=== PATIENT | female | born 1970 | race Caucasian/White ===

== ENCOUNTER 2018-03-20 15:55 | Emergency (ER) | payer BC ==
--- NOTE | 2018-03-20 17:35 | EDM.PDOC ---
ED HPI GENERAL MEDICAL PROBLEM - General Chief Complaint: Chest Pain Stated Complaint: CHEST PAIN Time Seen by Provider: 03/20/18 16:54 Source of Information: Reports: Patient History Limitations: Reports: No Limitations - History of Present Illness INITIAL COMMENTS - FREE TEXT/NARRATIVE: 47-year-old female with a past medical history of anxiety presenting with a chief complaint of some chest tightness. Patient states her symptoms have been intermittent and ongoing for a few months at least. She had an episode today which alarmed her in particular Associated with nausea and some very mild shortness of breath. She can't describe any palliating or provoking factors. It was resolved after a few minutes with no intervention. Her symptoms are nonexertional in nature. She has no risk factors for DVT or PE. epigastric Pain Score (Numeric/FACES): 4 - Related Data Allergies Allergy/AdvReac Type Severity Reaction Status Date / Time No Known Allergies Allergy Verified 03/20/18 16:13 Home Meds: Home Meds . [No Known Home Meds] 03/20/18 [History] Past Medical History - Past Health History Medical/Surgical History: Denies Medical/Surgical History Psychiatric History: Reports: Anxiety Social & Family History - Family History Family Medical History: Noncontributory - Tobacco Use Smoking Status *Q: Former Smoker Used Tobacco, but Quit: No - Caffeine Use Caffeine Use: Reports: Coffee - Recreational Drug Use Recreational Drug Use: No ED ROS GENERAL - Review of Systems Review Of Systems: See Below Constitutional: Reports: No Symptoms HEENT: Reports: No Symptoms Respiratory: Reports: Shortness of Breath Cardiovascular: Reports: Other (Chest pressure) GI/Abdominal: Reports: Nausea : Reports: No Symptoms Musculoskeletal: Reports: No Symptoms Skin: Reports: No Symptoms Neurological: Reports: No Symptoms Psychiatric: Reports: Anxiety Hematologic/Lymphatic: Reports: No Symptoms ED EXAM, GENERAL - Physical Exam Exam: See Below Exam Limited By: No Limitations General Appearance: Alert, No Apparent Distress Throat/Mouth: Normal Inspection Head: Atraumatic, Normocephalic Respiratory/Chest: No Respiratory Distress Cardiovascular: Normal Peripheral Pulses, Regular Rate, Rhythm, No Edema, No Murmur, No Rub GI/Abdominal: Normal Bowel Sounds, Soft, Non-Tender Back Exam: Normal Inspection Extremities: Normal Inspection, Normal Range of Motion Neurological: Alert, Oriented, CN II-XII Intact, No Motor/Sensory Deficits Psychiatric: Normal Affect, Normal Mood Skin Exam: Warm, Dry, Intact EKG INTERPRETATION EKG Date: 03/20/18 Time: 16:03 Rhythm: NSR Rate (Beats/Min): 74 [place]: Normal P-Wave: Present QRS: Normal ST-T: Normal QT: Normal Comparison: NA - No Prior EKG Course - Vital Signs Last Recorded V/S: Last Vital Signs Temp 36.8 C 03/20/18 16:00 Pulse 73 03/20/18 16:00 Resp 18 03/20/18 16:00 BP 157/92 H 03/20/18 16:00 Pulse Ox 100 03/20/18 16:00 - Orders/Labs/Meds Labs: Laboratory Tests 03/20/18 03/20/18 Range/Units 16:40 16:40 WBC 9.81 (3.98-10.04) K/mm3 RBC 4.72 (3.98-5.22) M/mm3 Hgb 14.5 (11.2-15.7) gm/L Hct 43.5 (34.1-44.9) % MCV 92.2 (79.4-94.8) fl MCH 30.7 (25.6-32.2) pg MCHC 33.3 (32.2-35.5) g/dl RDW Std Deviation 46.2 (36.4-46.3) fL Plt Count 197 (182-369) K/mm3 MPV 10.8 (9.4-12.3) fl Neut % (Auto) 58.2 (34.0-71.1) % Lymph % (Auto) 31.0 (19.3-51.7) % [place] % (Auto) 8.3 (4.7-12.5) % Eos % (Auto) 1.9 (0.7-5.8) Baso % (Auto) 0.4 (0.1-1.2) % Neut # (Auto) 5.71 (1.56-6.13) K/mm3 Lymph # (Auto) 3.04 (1.18-3.74) K/mm3 [place] # (Auto) 0.81 H (0.24-0.36) K/mm3 Eos # (Auto) 0.19 (0.04-0.36) K/mm3 Baso # (Auto) 0.04 (0.01-0.08) K/mm3 Sodium 140 (136-145) mEq/L Potassium 4.3 (3.5-5.1) mEq/L Chloride 105 (98-107) mEq/L Carbon Dioxide 26 (21-32) mEq/L Anion Gap 13.3 (5-15) BUN 14 (7-18) mg/dL Creatinine 1.0 (0.55-1.02) mg/dL Est Cr Clr Drug Dosing 62.58 mL/min Estimated GFR (MDRD) 59 (>60) mL/min BUN/Creatinine Ratio 14.0 (14-18) Glucose 94 (74-106) mg/dL Calcium 9.0 (8.5-10.1) mg/dL Total Bilirubin 0.6 (0.2-1.0) mg/dL AST 17 (15-37) U/L ALT 13 L (14-59) U/L Alkaline Phosphatase 42 L (46-116) U/L Troponin I < 0.017 (0.00-0.056) ng/mL C-Reactive Protein < 0.2 (<1.0) mg/dL Total Protein 7.5 (6.4-8.2) g/dl Albumin 4.0 (3.4-5.0) g/dl Globulin 3.5 gm/dL Albumin/Globulin Ratio 1.1 (1-2) - Re-Assessments/Exams Free Text/Narrative Re-Assessment/Exam: 03/21/18 22:24 Differential diagnosis: Costochondritis, pleurisy, anxiety, musculoskeletal chest pain, highly unlikely ACS or PE 47-year-old female presenting with chief complaint of intermittent chest tightness and shortness of breath. Upon initial evaluation patient's vital signs and normal physical exam. EKG is not concerning for ischemia Labs are normal. Upon reevaluation patient continues to be asymptomatic while in the emergency department at this time until patient is a 3 discharged home. No apparent evidence for cardiac or pulmonary etiology. She has follow-up scheduled with her PCP tomorrow morning and agrees to keep that appointment. Patient is given return precautions. No questions. Departure - Departure Time of Disposition: 18:33 Disposition: Home, Self-Care 01 Condition: Good Clinical Impression: Chest pain Qualifiers: Chest pain type: unspecified Qualified Code(s): R07.9 - Chest pain, unspecified Instructions: Nonspecific Chest Pain, Nonspecific Chest Pain, [id number] Referrals: Camille Hoskins SECURITY ADMINISTRATOR [Ordering Only Provider] - Forms: ED Department Discharge Additional Instructions: You were evaluated in the emergency department today for chest discomfort and shortness of breath. At this time all the diagnostic tests are not suggestive of a serious or life-threatening cause for your symptoms. It is safe to go home at this time. Please follow-up with your new primary care provider tomorrow as you've already previously scheduled. If at any time you have new or worsening symptoms which are concerning, please re-present to the emergency department for re-evaluation.
--- NOTE | 2018-03-22 08:46 | CR ---
Chest: Two views of the chest were obtained. Comparison: No prior chest x-ray. Heart size and mediastinum are normal. Lungs are clear. Mild scoliosis is noted within the spine. Bony structures are otherwise unremarkable. Impression: 1. Nothing acute is seen on two-view chest x-ray. Diagnostic code #2
== END 2018-03-20 18:52 | disposition home or self-care (01) ==
LOC: JD.ED 15:55
DX: R07.9 Chest pain, unspecified (principal); Z87.891 Personal history of nicotine dependence
CPT/HCPCS: 36415; 71046; 71046-26; 80053; 84484; 85025; 86140; 93005; 99285-25

== ENCOUNTER 2020-05-12 23:42 | Emergency (ER) | payer BC ==
--- NOTE | 2020-05-13 00:12 | EDM.PDOC ---
ED HPI GENERAL MEDICAL PROBLEM - General Chief Complaint: General Stated Complaint: VISION AFFECTED/HIGH BP/DIZZY/WEAKNESS Time Seen by Provider: 05/12/20 23:56 Source of Information: Reports: Patient History Limitations: Reports: No Limitations - History of Present Illness INITIAL COMMENTS - FREE TEXT/NARRATIVE: Ms. Doyle is a very pleasant 49-year-old woman who now presents to the ED after developing nausea around 13:00 this afternoon. She checked her blood pressure, finding it to be around 160/90. Around the same time, she developed swirling vision, generalized weakness, heavy feeling arms with tingling, and a headache. The patient states that she has had similar symptoms in the past, but not all at the same time. The patient states that she took 2 tablets of ibuprofen around 19:00, which provided her some relief of her symptoms. Here in the ED, the patient's initial BP is found to be elevated at 170/95, however, within a few minutes it was down to 142/93, without treatment. She is otherwise hemodynamically stable, afebrile, saturating 97% on room air. The patient reports over 6 months of watery diarrhea, otherwise, the patient denies having a recent fever, chills, sore throat, ear pain, nasal or sinus congestion, cough, dyspnea, chest pain, palpitations, nausea, vomiting, constipation, diarrhea, abdominal pain, urinary symptoms, recent weight gain or weight loss, recent bloody bowel movements or black bowel movements, recent joint aches, headaches, or rashes. The patient's PCP is APOORVA Bailey. Her R Programmer is Dr. Janet Crabtree. - Related Data Allergies Allergy/AdvReac Type Severity Reaction Status Date / Time No Known Allergies Allergy Verified 03/20/18 16:13 Home Meds: Home Meds . [No Known Home Meds] 03/20/18 [History] Past Medical History HEENT History: Reports: Impaired Vision (wears glasses) Psychiatric History: Reports: Anxiety (untreated) Endocrine/Metabolic History: Reports: Obesity/BMI 30+ - Past Surgical History HEENT Surgical History: Reports: Adenoidectomy, Oral Surgery (dental extractions), Tonsillectomy Female Surgical History: Reports: D&C (x 1) Social & Family History - Family History Family Medical History: Noncontributory - Tobacco Use Tobacco Use Status *Q: Former Tobacco User Years of Tobacco use: 7 Packs/Tins Daily: 0.2 Month/Year Tobacco Last Used: Quit 2008 - Caffeine Use Caffeine Use: Reports: Coffee - Alcohol Use Alcohol Use History: Yes Alcohol Use Frequency: Socially - Recreational Drug Use Recreational Drug Use: No - Living Situation & Occupation Living situation: Reports: , with Family (Parents) 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 ED EXAM, GENERAL - Physical Exam Exam: See Below Exam Limited By: No Limitations General Appearance: Alert, WD/WN, No Apparent Distress Eye Exam: Bilateral Eye: EOMI, Normal Inspection Ears: Normal External Exam, Hearing Grossly Normal Nose: Normal Inspection Throat/Mouth: Normal Inspection, Normal Lips, Normal Voice, No Airway Compromise Head: Atraumatic, Normocephalic Neck: Normal Inspection, Full Range of Motion Respiratory/Chest: No Respiratory Distress, Lungs Clear, Normal Breath Sounds, No Accessory Muscle Use Cardiovascular: Normal Peripheral Pulses, Regular Rate, Rhythm, No Edema, No Gallop, No JVD, No Murmur, No Rub Peripheral Pulses: 3+: Radial (L), Radial (R) GI/Abdominal: Normal Bowel Sounds, Soft, Non-Tender, No Organomegaly, No Dist ention, No Abnormal Bruit, No Mass Back Exam: Normal Inspection, Full Range of Motion, NT Extremities: Normal Inspection, Normal Range of Motion, Normal Capillary Refill Neurological: Alert, Oriented, CN II-XII Intact, Normal Cognition, No Motor/Sensory Deficits Psychiatric: Normal Affect Skin Exam: Warm, Dry, Intact, Normal Color, No Rash #1 Interpretation EKG Date: 05/13/20 Time: 00:25 Rhythm: NSR Rate (Beats/Min): 71 [place]: Normal P-Wave: Present QRS: Normal ST-T: Normal QT: Normal Comparison: No Change (03/20/2018) Course - Vital Signs Last Recorded V/S: Last Vital Signs Temp 36.4 C 05/12/20 23:54 Pulse 81 05/12/20 23:54 Resp 16 05/12/20 23:54 BP 170/95 H 05/12/20 23:54 Pulse Ox 97 05/12/20 23:54 - Orders/Labs/Meds Orders: Active Orders 24 hr Category Date Time Status EKG Documentation Completion [RC] STAT Care 05/13/20 00:09 Active Chest 2V [CR] Stat Exams 05/13/20 00:08 Taken Labs: Laboratory Tests 05/13/20 05/13/20 05/13/20 Range/Units 00:33 00:33 00:33 WBC 7.44 (3.98-10.04) K/mm3 RBC 4.20 (3.98-5.22) M/mm3 Hgb 12.9 D (11.2-15.7) gm/dl Hct 39.7 (34.1-44.9) % MCV 94.5 (79.4-94.8) fl MCH 30.7 (25.6-32.2) pg MCHC 32.5 (32.2-35.5) g/dl RDW Std Deviation 46.1 (36.4-46.3) fL Plt Count 200 (182-369) K/mm3 MPV 11.3 (9.4-12.3) fl Neutrophils % (Manual) 47 (40-60) % Band Neutrophils % 0 (0-10) % Lymphocytes % (Manual) 44 H (20-40) % Atypical Lymphs % 0 % Monocytes % (Manual) 4 (2-10) % Eosinophils % (Manual) 3 (0.7-5.8) % Basophils % (Manual) 2 H (0.1-1.2) Platelet Estimate Adequate Plt Morphology Comment Normal RBC Morph Comment Normal D-Dimer, Quantitative 0.41 (0.19-0.50) mg/L Sodium 142 (136-145) mEq/L Potassium 3.6 (3.5-5.1) mEq/L Chloride 106 (98-107) mEq/L Carbon Dioxide 23 (21-32) mEq/L Anion Gap 16.6 H (5-15) BUN 13 (7-18) mg/dL Creatinine 1.2 H (0.55-1.02) mg/dL Est Cr Clr Drug Dosing 51.03 mL/min Estimated GFR (MDRD) 48 (>60) mL/min BUN/Creatinine Ratio 10.8 L (14-18) Glucose 102 (74-106) mg/dL Calcium 8.4 L (8.5-10.1) mg/dL Magnesium 1.7 L (1.8-2.4) mg/dl Total Bilirubin 0.3 (0.2-1.0) mg/dL AST 19 (15-37) U/L ALT 31 (14-59) U/L Alkaline Phosphatase 24 L (46-116) U/L Troponin I < 0.017 (0.00-0.056) ng/mL C-Reactive Protein 0.2 (<1.0) mg/dL Total Protein 6.7 (6.4-8.2) g/dl Albumin 3.2 L (3.4-5.0) g/dl Globulin 3.5 gm/dL Albumin/Globulin Ratio 0.9 L (1-2) - Re-Assessments/Exams Free Text/Narrative Re-Assessment/Exam: 05/13/20 00:10 As above, the patient felt nauseated earlier this afternoon, checked her blood pressure, finding it to be modestly elevated at 160/90, but around the same time developed swirling vision, generalized weakness, heavy feeling arms with tingling, and a headache. Here in the ED, the patient's initial BP was again found to be modestly elevated at 170/95, however, within minutes, it was down to 142/93. Her physical exam is entirely benign. I have ordered a work-up that includes blood work, a chest x-ray, and an ECG. 05/13/20 01:05 2-view chest radiograph is read by John as "No acute findings." 05/13/20 01:54 The patient's CBC is unremarkable. Her CMP is remarkable for an anion gap slightly elevated at 16.6, but with a bicarbonate normal at 23. Her Cr is slightly elevated at 1.2, with a BUN normal at 13, and the remainder of her CMP being unremarkable. Her magnesium level is slightly depressed at 1.7. Her CRP is within normal limits at 0.2. Her troponin is undetectably low. Her D-dimer is within normal limits at 0.41. 05/13/20 01:58 Test results discussed with the patient. As above, today's work-up is unremarkable. It is unclear what the cause of the patient's symptoms were. She may have had a migraine, except that her symptoms have resolved without any treatment, and she has no history of migraines. I believe the patient can safely be discharged home. If her symptoms persist or recur, I would like her to follow-up with her PCP. Departure - Departure Time of Disposition: 01:58 Disposition: Home, Self-Care 01 Condition: Good Clinical Impression: Elevated blood pressure reading, Change in vision, Generalized weakness, Headache - Discharge Information *PRESCRIPTION DRUG MONITORING PROGRAM REVIEWED*: Not Applicable *COPY OF PRESCRIPTION DRUG MONITORING REPORT IN PATIENT KWAME: Not Applicable Referrals: Ronda Munoz PA-C [Ordering Only Provider] - Janet Crabtree MD [Physician] - Forms: ED Department Discharge Additional Instructions: You were seen in the emergency room after developing nausea, swelling vision, generalized weakness, heavy feeling arms with tingling, and a headache. Work-up in the ER included blood work, a chest x-ray, and an ECG. Your entire work-up was unremarkable. You have not suffered a heart attack. You do not have a blood clot in your lungs. You do not have pneumonia. You are not anemic. The cause of your symptoms is unclear. It is possible that you suffered a migraine, except that your symptoms essentially resolved without treatment, and you have no history of migraines. If your symptoms persist or recur, we recommend that you follow-up with your PCP, APOORVA Bailey, for further evaluation. If any other problems, please do not hesitate to return to the ER. Sepsis Event Note (ED) - Evaluation Sepsis Screening Result: No Definite Risk - Focused Exam Vital Signs: Vital Signs Temp Pulse Resp BP Pulse Ox 05/12/20 23:54 36.4 C 81 16 170/95 H 97 - My Orders Last 24 Hours: My Active Orders 05/13/20 00:08 Chest 2V [CR] Stat 05/13/20 00:09 EKG Documentation Completion [RC] STAT - Assessment/Plan Last 24 Hours: My Active Orders 05/13/20 00:08 Chest 2V [CR] Stat 05/13/20 00:09 EKG Documentation Completion [RC] STAT
== END 2020-05-13 02:18 | disposition home or self-care (01) ==
LOC: JD.ED 23:42
DX: R03.0 Elevated blood-pressure reading, without diagnosis of hypertension (principal); H53.149 Visual discomfort, unspecified; R53.1 Weakness; R51.9 Headache, unspecified; E66.9 Obesity, unspecified; Z87.891 Personal history of nicotine dependence; Z90.49 Acquired absence of other specified parts of digestive tract; Z68.34 Body mass index [BMI] 34.0-34.9, adult
CPT/HCPCS: 36415; 71046; 80053; 83735; 84484; 85007; 85027; 85379; 86140; 93005; 93010; 99283; 99285-25

== ENCOUNTER 2023-05-25 16:05 | Emergency (ER) | payer BC | END 2023-05-25 17:40 | disposition home or self-care (01) | LOC: JD.ED 16:05 | DX: U07.1 COVID-19 (principal); F41.9 Anxiety disorder, unspecified; R03.0 Elevated blood-pressure reading, without diagnosis of hypertension; E66.9 Obesity, unspecified; Z68.34 Body mass index [BMI] 34.0-34.9, adult | CPT/HCPCS: 99283 ==

== ENCOUNTER 2023-08-24 18:38 | Emergency (ER) | payer BC ==
[2023-08-24] MEDS ORDERED: Dextrose 5%-Lactated Ringers 1,000 ML IV SCH (19:15)
[2023-08-24 19:32] LABS: BASOPHILS ABSOLUTE AUTO 0.1 K/mm3 (0.0-0.2); BASOPHILS PERCENT AUTO 0.9 % (0.0-1.0); EOSINOPHILS ABSOLUTE AUTO 0.2 K/mm3 (0.0-0.4); HEMATOCRIT 39.8 % (37.0-47.0); HEMOGLOBIN 13.6 gm/dl (12.0-16.0); IMMATURE GRAN ABSOLUTE AUTO 0.02 K/mm3 (0.00-0.05); IMMATURE GRAN PERCENT AUTO 0.3 % (0.0-0.4); LYMPHOCYTES PERCENT AUTO 39.4 % (24.0-44.0); MEAN CORPUSCULAR HEMOGLOBIN 33.3 pg (28.0-32.0); MEAN CORPUSCULAR HGB CONC 34.2 g/dl (32.0-36.0); MEAN CORPUSCULAR VOLUME 97.3 fl (83.0-99.0); MEAN PLATELET VOLUME 10.5 fl (9.4-12.3); MONOCYTES ABSOLUTE AUTO 0.7 K/mm3 (0.0-0.8); MONOCYTES PERCENT AUTO 8.8 % (0.0-8.0); NEUTROPHILS ABSOLUTE AUTO 3.7 K/mm3 (1.8-7.7); NEUTROPHILS PERCENT AUTO 48.6 % (41.0-71.0); PLATELET COUNT,PLT 195 K/mm3 (150-400); RED BLOOD CELL COUNT 4.09 M/mm3 (4.10-5.30); WHITE BLOOD CELL COUNT,WBC 7.63 K/mm3 (3.9-11.3)
[2023-08-24] MEDS ORDERED: Ondansetron 4 MG/2 ML SDV IVPUSH ONE (19:42)
[2023-08-24] MEDS ORDERED: LORazepam 2 MG/ML SDV IVPUSH ONE (19:42)
[2023-08-24] MEDS ORDERED: HYDROmorphone 0.5 MG/0.5 ML Syringe IVPUSH ONE (19:43)
[2023-08-24 20:01] LABS: A/G RATIO 1.1 (1-2); ALANINE AMINOTRANSFERASE,ALT 33 U/L (14-59); ALBUMIN 3.5 g/dl (3.4-5.0); ALKALINE PHOSPHATASE 25 U/L (46-116); ANION GAP 16.3 (5-15); ASPARTATE AMNIOTRANSFERASE,AST 25 U/L (15-37); BILIRUBIN TOTAL 0.5 mg/dL (0.2-1.0); BLOOD UREA NITROGEN,BUN 9 mg/dL (7-18); BUN/CREATININE RATIO 11.3 (14-18); C-REACTIVE PROTEIN <0.2 mg/dL (<1.0); CALCIUM 8.7 mg/dL (8.5-10.1); CARBON DIOXIDE,CO2 24 mEq/L (21-32); CHLORIDE,CL 105 mEq/L (98-107); CREATININE 0.8 mg/dL (0.55-1.02); EST CRCL DRUG DOSING (CG) 73.18 mL/min; ESTIMATED GFR 88 mL/min (>60); GLUCOSE RANDOM 96 mg/dL (70-99); MAGNESIUM 1.8 mg/dL (1.8-2.4); POTASSIUM,K 3.3 mEq/L (3.5-5.1); PROTEIN TOTAL,TP 6.8 g/dl (6.4-8.2); SODIUM,NA 142 mEq/L (136-145)
[2023-08-24 20:03] LABS: APPEARANCE,URINE CLEAR (Clear); BILIRUBIN,URINE NEGATIVE (Negative); COLOR,URINE YELLOW (Yellow); GLUCOSE,URINE NEGATIVE (Negative); KETONES,URINE NEGATIVE (Negative); LEUKOCYTE ESTERASE,URINE NEGATIVE (Negative); NITRITE,URINE NEGATIVE (Negative); OCCULT BLOOD,URINE 1+ (Negative); PROTEIN,URINE NEGATIVE (Negative); UROBILINOGEN,URINE 0.2 (0.2-1.0)
[2023-08-24 20:09] LABS: BACTERIA,URINE FEW /hpf (FEW); MUCUS,URINE FEW /hpf (FEW); RBC,URINE 0-5 /hpf (0-5); SQUAMOUS EPITHELIAL CELLS,UR 0-5 /hpf (0-5); WBC,URINE 0-5 /hpf (0-5)
[2023-08-24 20:13] LABS: TROPONIN I HIGH SENSITIVITY 66 pg/mL (<=51)
[2023-08-24] MEDS ORDERED: amLODIPine 10 MG Tab PO ONE (21:14)
[2023-08-24] MEDS ORDERED: Ondansetron 4 MG Tab.DIS PO ONE (21:47)
[2023-08-24] MEDS: Ondansetron 4 MG Tab.DIS ONE ×2 (21:47→21:55)
== END 2023-08-24 21:59 | disposition home or self-care (01) ==
LOC: JD.ED 18:38
DX: I10 Essential (primary) hypertension (principal); E86.9 Volume depletion, unspecified; R19.7 Diarrhea, unspecified
CPT/HCPCS: 36415; 71045; 80053; 81001; 83605; 83735; 83880; 84484; 85025; 86140; 93005; 96361; 96374; 96375; 99284; A9270; J1170; J2060; J2405; J7121

== ENCOUNTER 2025-05-07 12:55 | Emergency (ER) | payer BC ==
[2025-05-07] MEDS ORDERED: Sodium Chloride 0.9% 10 ML Syringe FLUSH PRN (13:50)
[2025-05-07 14:00] LABS: BASOPHILS ABSOLUTE AUTO 0.1 K/mm3 (0.0-0.2); BASOPHILS PERCENT AUTO 1.3 % (0.0-1.0); EOSINOPHILS ABSOLUTE AUTO 0.4 K/mm3 (0.0-0.4); EOSINOPHILS PERCENT AUTO 4.7 % (0.0-6.0); IMMATURE GRAN ABSOLUTE AUTO 0.02 K/mm3 (0.00-0.05); IMMATURE GRAN PERCENT AUTO 0.2 % (0.0-0.4); LYMPHOCYTES ABSOLUTE AUTO 2.9 K/mm3 (1.0-4.8); LYMPHOCYTES PERCENT AUTO 31.5 % (24.0-44.0); MEAN PLATELET VOLUME 10.8 fl (9.4-12.3); MONOCYTES ABSOLUTE AUTO 0.7 K/mm3 (0.0-0.8); MONOCYTES PERCENT AUTO 7.2 % (0.0-8.0); NEUTROPHILS ABSOLUTE AUTO 5.0 K/mm3 (1.8-7.7); NEUTROPHILS PERCENT AUTO 55.1 % (41.0-71.0); NRBC ABSOLUTE 0.00 (0.00-0.02); NRBC PERCENT 0.0 % (0.0-0.2); PLATELET COUNT,PLT 191 K/mm3 (150-400); RED BLOOD CELL COUNT 3.97 M/mm3 (4.10-5.30); WHITE BLOOD CELL COUNT,WBC 9.12 K/mm3 (3.9-11.3)
[2025-05-07 14:19] LABS: A/G RATIO 1.0 (1-2); ALANINE AMINOTRANSFERASE,ALT 31.0 U/L (14-59); ASPARTATE AMNIOTRANSFERASE,AST 20.0 U/L (15-37); BILIRUBIN TOTAL 0.6 mg/dL (0.2-1.0); BLOOD UREA NITROGEN,BUN 13.0 mg/dL (7-18); CARBON DIOXIDE,CO2 25.0 mEq/L (21-32); CHLORIDE,CL 109.0 mEq/L (98-107); CREATININE 1.0 mg/dL (0.55-1.02); EST CRCL DRUG DOSING (CG) 57.87 mL/min; ESTIMATED GFR 67.0 mL/min (>60); GLUCOSE RANDOM 112.0 mg/dL (70-99); POTASSIUM,K 3.8 mEq/L (3.5-5.1); PROTEIN TOTAL,TP 6.9 g/dl (6.4-8.2); SODIUM,NA 142.0 mEq/L (136-145); TROPONIN I HIGH SENSITIVITY 15.0 pg/mL (<=51); TSH 0.709 uIU/mL (0.358-3.74)
== END 2025-05-07 16:13 | disposition home or self-care (01) ==
LOC: JD.ED 12:55
DX: M26.602 Left temporomandibular joint disorder, unspecified (principal); R53.83 Other fatigue; E66.9 Obesity, unspecified; Z88.2 Allergy status to sulfonamides; Z86.16 Personal history of COVID-19; Z68.32 Body mass index [BMI] 32.0-32.9, adult
CPT/HCPCS: 36415; 80053; 83735; 84443; 84484; 85025; 86140; 87428-QW; 93005; 93010; 99283; 99284